=== PATIENT | female | born 1975 | race Caucasian/White ===

== ENCOUNTER 2016-07-14 08:40 | Day surgery (SDC) | payer BC, MEDICAID ==
[~2016-07-14 08:40] MED LIST: Clindamycin Phosphate in D5W 600 MG in Premix Bag 50 BAG IV SCH; Lactated Ringers 1,000 ML IV SCH; Lidocaine 1% 50 ML MDV ONE
[2016-07-14] MEDS ORDERED: Acetaminophen/HYDROcodone 325-5 MG Tab PO PRN (09:00)
[2016-07-14] MEDS ORDERED: Lidocaine 2% 5 ML SDV ONE (09:45)
[2016-07-14] MEDS ORDERED: Propofol 200 MG/20 ML SDV ONE (09:45)
[2016-07-14] MEDS ORDERED: fentaNYL 250 MCG/5 ML SDV ONE (09:45)
[2016-07-14] MEDS ORDERED: Midazolam 1 MG/ML 2 ML SDV ONE (09:45)
--- NOTE | 2016-07-14 10:11 | PCM.PREANE ---
Preanesthetic Assessment - Anesthesia/Transfusion/Family Hx Anesthesia History: Prior Anesthesia Without Reaction Family History of Anesthesia Reaction: No Transfusion History: Prior Transfusion Without Reaction Intubation History: Unknown - Review of Systems General: No Symptoms Pulmonary: No Symptoms Cardiovascular: No Symptoms Gastrointestinal: No symptoms Neurological: No Symptoms Other: Reports: None - Physical Assessment NPO Status Date: 07/13/16 NPO Status Time: 22:00 O2 Sat by Pulse Oximetry: 99 Respiratory Rate: 16 Vital Signs: Last Vital Signs Temp 36.7 C 07/14/16 09:41 Pulse 88 07/14/16 09:41 Resp 16 07/14/16 09:41 BP 116/63 07/14/16 09:41 Pulse Ox 99 07/14/16 09:41 Height: 1.74 m Weight: 70.76 kg ASA Class: 2 Mental Status: Alert & Oriented x3 Airway Class: Mallampati = 2 Dentition: Reports: Normal Dentition Thyro-Mental Finger Breadths: 3 Mouth Opening Finger Breadths: 3 ROM/Head Extension: Full Lungs: Clear to auscultation, Normal respiratory effort Cardiovascular: Regular Rate, Regular Rhythm - Allergies Allergies/Adverse Reactions: Allergies Allergy/AdvReac Type Severity Reaction Status Date / Time amoxicillin Allergy Anaphylactic Verified 09/28/15 10:37 Shock cephalexin Allergy Rash Verified 09/28/15 10:37 codeine Allergy Tachycardia Verified 01/24/16 09:39 erythromycin base Allergy Anaphylactic Verified 06/30/16 13:38 Shock levofloxacin [From Levaquin] Allergy Anaphylactic Verified 06/30/16 13:38 Shock Penicillins Allergy Anaphylactic Verified 09/28/15 10:37 Shock - Blood Blood Available: No - Anesthesia Plan Pre-Op Medication Ordered: None - Acknowledgements Anesthesia Type Planned: General Anesthesia Pt an Appropriate Candidate for the Planned Anesthesia: Yes Alternatives and Risks of Anesthesia Discussed w Pt/Guardian: Yes Pt/Guardian Understands and Agrees with Anesthesia Plan: Yes PreAnesthesia Questionnaire HEENT History: Reports: Other (see below) Other HEENT History: wears contacts Cardiovascular History: Reports: None Respiratory History: Reports: None Gastrointestinal History: Reports: None Genitourinary History: Reports: None 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: Musculoskeletal History: Reports: Fracture, Other (see below) (chondromalacia) Other Musculoskeletal History: open tx for fx of metatarsal bone and metacarpal bone Neurological History: Reports: Concussion Psychiatric History: Reports: None Endocrine/Metabolic History: Reports: None Hematologic History: Reports: Blood transfusion(s) Other Hematologic History: hx following vaginal delivery for post bleed Immunologic History: Reports: None Oncologic (Cancer) History: Reports: None Dermatologic History: Reports: None - Past Surgical History Head Surgeries/Procedures: Reports: None HEENT Surgical History: Reports: Tonsillectomy Female Surgical History: Reports: Hysterectomy, Tubal ligation Other Female Surgeries/Procedures: breast augmenta, hysterectomy, tubal ligation Musculoskeletal Surgical History: Reports: Arthroscopic knee (rt. x3, lt. x4), Shoulder surgery Other Musculoskeletal Surgeries/Procedures:: hx shoulder surgery and knee arthroscopy - SUBSTANCE USE Smoking Status *Q: Current Every Day Smoker (down to 5-6 cigarettes per day) Tobacco Use Within Last Twelve Months: Cigarettes Recreational Drug Use History: No - HOME MEDS Home Medications: Home Meds Phentermine HCl 1 tab PO ASDIRECTED 01/24/16 [History] - CURRENT (IN HOUSE) MEDS Current Meds: Current Medications Hydrocodone Bitart/Acetaminophen ([place] 325-5 Mg) 1 - 2 tab PO Q4H PRN PRN Reason: Pain Clindamycin Phosphate 600 mg/ (Premix) 50 mls @ 100 mls/hr IV [facility] Last Admin: 07/14/16 09:16 Dose: 100 mls/hr Lactated Ringer's (Ringers, Lactated) 1,000 mls @ 100 mls/hr IV ASDIRECTED [facility] Last Admin: 07/14/16 09:10 Dose: 100 mls/hr Discontinued Medications Fentanyl (Sublimaze) Confirm Administered Dose 250 mcg .ROUTE .STK-MED ONE Stop: 07/14/16 09:46 Lidocaine (Xylocaine-Mpf 2%) Confirm Administered Dose 10 ml .ROUTE .STK-MED ONE Stop: 07/14/16 09:46 Lidocaine HCl (Xylocaine 1%) Confirm Administered Dose 50 ml .ROUTE .STK-MED ONE Stop: 07/14/16 07:13 Midazolam HCl (Versed 1 Mg/Ml) Confirm Administered Dose 2 mg .ROUTE .STK-MED ONE Stop: 07/14/16 09:46 Propofol (Diprivan 20 Ml) Confirm Administered Dose 400 mg .ROUTE .STK-MED ONE Stop: 07/14/16 09:46
--- NOTE | 2016-07-14 11:42 | PCM.OPNOTE ---
- General Post-Op/Procedure Note Date of Surgery/Procedure: 07/14/16 Operative Procedure(s): R knee scope with PLM/PMM Post-Op Diagnosis: R knee DJD, med/lat meniscus tear Anesthesia Technique: General LMA Primary Surgeon: Siomara Roblero Armhole Baster Jumpbasting: Sherie Perez in mLs: 5 Condition: Good Free Text/Narrative:: tt=17 min #[id number]
[2016-07-14] MEDS: fentaNYL 100 MCG/2 ML SDV IVPUSH PRN ×5 (11:55→12:59)
--- NOTE | 2016-07-14 12:39 | PCM.POSTAN ---
POST ANESTHESIA ASSESSMENT - MENTAL STATUS Mental Status: alert, oriented - RESPIRATORY Respiratory Status: respiratory rate WNL, airway patent, O2 saturation stable - CARDIOVASCULAR CV Status: pulse rate WNL, blood pressure stable - GASTROINTESTINAL GI Status: no symptoms - POST OP HYDRATION Hydration Status: adequate & stable - OBSERVATIONS Free Text/Narrative:: no anesthesia problems
[2016-07-14 14:04] VITALS: BP 105/53
--- NOTE | 2016-07-15 03:11 | OR ---
SURGEON: Siomara Roblero MD DATE OF PROCEDURE: 07/14/2016 PREOPERATIVE DIAGNOSIS: Degenerative joint disease,right knee. POSTOPERATIVE DIAGNOSES: 1. Degenerative joint disease, right knee. 2. Right knee medial meniscus tear. 3. Right knee lateral meniscus tear. PROCEDURE: Right knee arthroscopy with partial medial and lateral meniscectomy. MEAT PACKER: Sari Perez PA-C. ANESTHESIA: General. ESTIMATED BLOOD LOSS: 5 mL. TOURNIQUET TIME: 17 minutes. COMPLICATIONS: None. DVT PROPHYLAXIS: Not indicated. IMPLANTS USED: None. BRIEF HISTORY: Che is a 41-year-old female, who has had complaint of progressive right knee pain. She has undergone right knee arthroscopy in the past and has known degenerative changes. She has had an increase in her pain recently. At that time, I recommended surgical debridement. The risks and goals of procedure were discussed with the patient and documented preoperatively. She agreed to proceed. DESCRIPTION OF PROCEDURE: The patient was properly identified and brought to the operating room. She was transferred from the OR cart and placed on the operating table in supine position. General anesthesia was administered. After adequate anesthesia was obtained, a well-padded tourniquet was applied to the right lower extremity. The right lower extremity was then prepped in standard fashion using ChloraPrep solution. It was then sterilely draped. A time-out was performed to ensure correct site and procedure. Preoperative antibiotics were given. The surgical site had been marked preoperatively. An Esmarch was used to exsanguinate the right lower extremity and the tourniquet was inflated to 250 mmHg. A lateral portal arthrotomy was established. Blunt trocar and cannula were introduced into the suprapatellar pouch. Camera, inflow, and outflow were assembled. No significant synovitis was noted. The patellofemoral joint was visualized. There was an area of grade 4 chondromalacia centrally along the trochlear groove. The patella also showed diffuse grade 3 chondromalacia. The patella appeared to track centrally. I then extended down the lateral and medial gutter. No loose bodies were identified. I then entered the medial compartment. A medial portal arthrotomy was established. A blunt probe was inserted. The meniscus was probed. It was found to be stable. Degenerative changes were noted along the posterior horn. Using a combination of biters and shaver, this was resected back to a stable remnant. There was a large area of grade 4 chondromalacia along the posterior aspect of the medial femoral condyle. This measured approximately 15 mm x 20 mm and appeared to be nearly full thickness. A shaver was used to trim the loose edges. The medial tibial plateau showed evidence of diffuse grade 2 to grade 3 chondromalacia. I then entered the notch. Both the ACL and PCL were visualized and probed and found to be intact. I finally entered the lateral compartment. There appeared to be diffuse grade 2 to grade 3 chondromalacia along the lateral tibial plateau. There were some loose fragments, which were resected with a shaver. There was a small area measuring approximately by 5 mm x 5 mm over the lateral aspect of the lateral femoral condyle, which had nearly full thickness cartilage loss. The meniscus was then probed. There was found to be degenerative fraying centrally and this was resected with a combination of biters and shaver. The meniscus was again probed and found to be stable. I then entered the patellofemoral joint. There was a central area of chondromalacia along the trochlear groove, which measured approximately 5 mm x 15 mm. This was nearly full thickness. No significant loose cartilage was noted. Instruments were then removed from the knee. The portal sites were closed with 3-0 nylon. Lidocaine 1% was injected along the portal tracts. Xeroform gauze was placed over the wound and a bulky dressing was applied. The tourniquet was then deflated. She was awakened from her anesthetic and transferred back to the operating room cart. She was brought to recovery room in stable condition. All needle and sponge counts were correct. GABRIELA / KWABENA /[id number]
== END 2016-07-14 13:40 | disposition home or self-care (01) ==
LOC: MW.SDS 08:40
PROVIDERS: ATTEND Orthopaedic Surgery
PROC: 0SBC4ZZ Excision of Right Knee Joint, Percutaneous Endoscopic Approach (ICD-10-PCS; principal; 2016-07-14)
PROC: 0SBC4ZZ Excision of Right Knee Joint, Percutaneous Endoscopic Approach (ICD-10-PCS; 2016-07-14)
DX: M17.11 Unilateral primary osteoarthritis, right knee (principal); M65.861 Other synovitis and tenosynovitis, right lower leg; M23.321 Other meniscus derangements, posterior horn of medial meniscus, right knee; M23.361 Other meniscus derangements, other lateral meniscus, right knee; M94.261 Chondromalacia, right knee; F17.210 Nicotine dependence, cigarettes, uncomplicated; Z88.0 Allergy status to penicillin; Z88.1 Allergy status to other antibiotic agents; Z98.51 Tubal ligation status; Z90.710 Acquired absence of both cervix and uterus; Z90.89 Acquired absence of other organs; Z98.890 Other specified postprocedural states
CPT/HCPCS: 29880; A9270; J2250; J3010; J7120; 01400; 88304; J2704

== ENCOUNTER 2017-03-25 07:15 | Day surgery (SDC) | payer BC ==
[~2017-03-25 07:15] MED LIST changes: -Clindamycin Phosphate in D5W 600 MG in Premix Bag 50 BAG IV SCH; -Lidocaine 1% 50 ML MDV ONE; +Lidocaine 2% 5 ML SDV ONE; +Midazolam 1 MG/ML 2 ML SDV ONE; +Ondansetron 4 MG/2 ML SDV ONE; +Propofol 200 MG/20 ML SDV ONE; +Rocuronium 10 MG/ML 10 ML Syringe ONE; +Scopolamine 1.5 MG Transdermal Patch TRDERM SCH; +fentaNYL 250 MCG/5 ML SDV ONE
[2017-03-25] MEDS ORDERED: Clindamycin Phosphate in D5W 600 MG in Premix Bag 50 BAG IV SCH ×2 (08:00)
[2017-03-25] MEDS ORDERED: Ketorolac 10 MG Tab PO PRN (08:00)
[2017-03-25] MEDS ORDERED: Acetaminophen 1,000 MG in Premix Bag 1 BAG IV SCH (08:00)
[2017-03-25] MEDS ORDERED: Acetaminophen/HYDROcodone 325-10 MG Tab PO PRN (08:00)
--- NOTE | 2017-03-25 08:04 | PCM.PREANE ---
Preanesthetic Assessment - Anesthesia/Transfusion/Family Hx Anesthesia History: Prior Anesthesia Reaction Family History of Anesthesia Reaction: No Transfusion History: Prior Transfusion Without Reaction Intubation History: Unknown - Review of Systems General: No Symptoms Pulmonary: No Symptoms Cardiovascular: No Symptoms Gastrointestinal: No Symptoms Neurological: No Symptoms Other: Reports: None - Physical Assessment NPO Status Date: 03/24/17 Height: 1.74 m Weight: 70.76 kg ASA Class: 2 Mental Status: Alert & Oriented x3 Airway Class: Mallampati = 2 Dentition: Reports: Normal Dentition ROM/Head Extension: Full Lungs: Clear to Auscultation, Normal Respiratory Effort Cardiovascular: Regular Rate, Regular Rhythm - Allergies Allergies/Adverse Reactions: Allergies Allergy/AdvReac Type Severity Reaction Status Date / Time amoxicillin Allergy Anaphylactic Verified 03/20/17 10:52 Shock cephalexin Allergy Rash Verified 03/20/17 10:52 codeine Allergy Tachycardia Verified 03/20/17 10:52 erythromycin base Allergy Anaphylactic Verified 03/20/17 10:52 Shock levofloxacin [From Levaquin] Allergy Anaphylactic Verified 03/20/17 10:52 Shock Penicillins Allergy Anaphylactic Verified 03/20/17 10:52 Shock Sulfa (Sulfonamide Allergy Rash Verified 03/20/17 10:52 Antibiotics) - Acknowledgements Anesthesia Type Planned: General Anesthesia Pt an Appropriate Candidate for the Planned Anesthesia: Yes Alternatives and Risks of Anesthesia Discussed w Pt/Guardian: Yes Pt/Guardian Understands and Agrees with Anesthesia Plan: Yes Additional Comments: ISB placed preoperatively for post op pain management. 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: Musculoskeletal History: Reports: Arthritis, Fracture Other Musculoskeletal History: hx of fx toe, hand, foot, fingers Neurological History: Psychiatric History: Reports: None Endocrine/Metabolic History: Reports: None Hematologic History: Reports: Blood Transfusion(s) Other Hematologic History: hx following vaginal delivery for post bleed Immunologic History: Reports: None Oncologic (Cancer) History: Reports: None Dermatologic History: Reports: None - Past Surgical History Head Surgeries/Procedures: Reports: None HEENT Surgical History: Reports: Tonsillectomy Female Surgical History: Reports: Hysterectomy, Tubal Ligation Other Female Surgeries/Procedures: breast augmenta, hysterectomy, tubal ligation Musculoskeletal Surgical History: Reports: Arthroscopic Knee, ORIF, Shoulder Surgery Other Musculoskeletal Surgeries/Procedures:: hx shoulder surgery (RTCR) and knee arthroscopy x8 ORIF right great toe and right hand (has hardware) - SUBSTANCE USE Smoking Status *Q: Current Every Day Smoker Tobacco Use Within Last Twelve Months: Cigarettes Recreational Drug Use History: No - HOME MEDS Home Medications: Home Meds Phentermine HCl 37.5 mg PO ASDIRECTED 01/24/16 [History] Ibuprofen 800 mg PO TID PRN 03/20/17 [History] - CURRENT (IN HOUSE) MEDS Current Meds: Current Medications Hydrocodone Bitart/Acetaminophen ([place] 325-10 Mg) 1 - 2 tab PO Q4H PRN PRN Reason: Pain Fentanyl (Sublimaze) 50 mcg IVPUSH .Q5MIN PRN PRN Reason: Pain Clindamycin Phosphate 600 mg/ (Premix) 50 mls @ 100 mls/hr IV ONCALL [facility] Last Admin: 03/25/17 07:53 Dose: 100 mls/hr Lactated Ringer's (Ringers, Lactated) 1,000 mls @ 100 mls/hr IV ASDIRECTED [facility] Acetaminophen 1,000 mg/ Premix 100 mls @ 400 mls/hr IV .ONETIME [facility] Last Admin: 03/25/17 07:54 Dose: 400 mls/hr Ketorolac Tromethamine (Toradol) 10 mg PO Q6H PRN PRN Reason: Pain Stop: 03/30/17 08:01 Scopolamine (Transderm-Scop) 1.5 mg TRDERM ONARRIVE [facility] Last Admin: 03/25/17 07:54 Dose: 1.5 mg Discontinued Medications Fentanyl (Sublimaze) Confirm Administered Dose 250 mcg .ROUTE .STK-MED ONE Stop: 03/25/17 07:08 Lidocaine (Xylocaine-Mpf 2%) Confirm Administered Dose 5 ml .ROUTE .STK-MED ONE Stop: 03/25/17 07:08 Midazolam HCl (Versed 1 Mg/Ml) Confirm Administered Dose 2 mg .ROUTE .STK-MED ONE Stop: 03/25/17 07:08 Ondansetron HCl (Zofran) Confirm Administered Dose 4 mg .ROUTE .STK-MED ONE Stop: 03/25/17 07:08 Propofol (Diprivan 20 Ml) Confirm Administered Dose 200 mg .ROUTE .STK-MED ONE Stop: 03/25/17 07:08 Rocuronium [place] (Zemuron) Confirm Administered Dose 100 mg .ROUTE .STK-MED ONE Stop: 03/25/17 07:08
[2017-03-25] MEDS ORDERED: Bupivacaine 0.5% 30 ML SDV ONE (08:10)
[2017-03-25] MEDS ORDERED: Dexamethasone 4 MG/ML 5 ML MDV ONE (08:11)
[2017-03-25] MEDS ORDERED: Midazolam 1 MG/ML 2 ML SDV ONE (08:11)
[2017-03-25] MEDS ORDERED: Lidocaine 2% 5 ML SDV ONE (08:11)
[2017-03-25] MEDS ORDERED: fentaNYL 100 MCG/2 ML SDV ONE (08:11)
--- NOTE | 2017-03-25 08:36 | PCM.SN ---
- Free Text/Narrative Note: isb block note. consent obtained, time out performed. lido in skin. + twitch lost at 0.3, no paresthesia, dosed incrementally with 30 ml of 0.5% bupivicaine and 8 mg dexamethasone. No complications. Prior to procedure was sedated with 2 mg versed iv and 50 mcg fentanyl iv.
[2017-03-25] MEDS ORDERED: Mineral Oil/Petrolatum Ophth Oint 3.5 GM Tube ONE (09:01)
[2017-03-25] MEDS ORDERED: Ketorolac 30 MG/ML SDV ONE (10:03)
--- NOTE | 2017-03-25 10:06 | PCM.OPNOTE ---
- General Post-Op/Procedure Note Date of Surgery/Procedure: 03/25/17 Operative Procedure(s): R shoulder scope with SAD, debridement of anterior labrum, debridement of partial RTC tear Post-Op Diagnosis: R shoulder impingement, R shoulder degenerative anterior labral tear, R shoulder partial RTC tear Anesthesia Technique: General ET Tube, Regional Block Primary Surgeon: Siomara Roblero Industrial Electrical Technician: Shweta Alfonso in mLs: 5 Condition: Good Free Text/Narrative:: #[id number]
[2017-03-25] MEDS: fentaNYL 100 MCG/2 ML SDV IVPUSH PRN ×4 (10:28→11:04)
--- NOTE | 2017-03-25 10:41 | OR ---
SURGEON: Siomara Roblero MD DATE OF PROCEDURE: 03/25/2017 PREOPERATIVE DIAGNOSES: 1. Right shoulder impingement syndrome. 2. Right shoulder partial rotator cuff tear. POSTOPERATIVE DIAGNOSES: 1. Right shoulder impingement syndrome. 2. Right shoulder partial rotator cuff tear. 3. Right shoulder degenerative anterior labral tear. PROCEDURE: Right shoulder arthroscopy with, 1. Subacromial decompression with release of coracoacromial ligament and acromioplasty. 2. Limited debridement of the anterior labrum and extensive bursectomy. 3. Debridement of partial rotator cuff tear. GROUP ART SUPERVISOR: Shweta Alfonso PA-C. ANESTHESIA: General with interscalene block. ESTIMATED BLOOD LOSS: 5 mL. TOURNIQUET TIME: 0 minutes. COMPLICATIONS: None. DVT PROPHYLAXIS: PAS boots to bilateral lower extremities. IMPLANTS USED: None. BRIEF HISTORY: Che is a 42-year-old female who has had complaint of progressive right shoulder pain. She has previously undergone a right shoulder arthroscopy many years ago including an open distal clavicle excision. She had done well until recently. She had tried conservative treatment which had not given her significant relief. An MRI did show a partial tear of the rotator cuff. Due to her lack of response to conservative treatment, I did recommend surgical intervention. The risks and goals of procedure were discussed with the patient and were documented preoperatively. She agreed to proceed. DESCRIPTION OF PROCEDURE: The patient was properly identified and brought to the operating room. She was transferred from the OR cart and placed on the operating table in supine position. General anesthesia was administered. After adequate anesthesia was obtained, the patient was placed in a beach-chair position. Care was taken to pad all bony prominences. Her head was secured. The right upper extremity was then prepped in standard fashion using ChloraPrep solution. It was then sterilely draped. A time-out was performed to ensure correct site and procedure. Preoperative antibiotics were given. The surgical site had been marked preoperatively. Bony landmarks were identified with a marking pen. Approximately 30 mL of normal saline was introduced into the glenohumeral joint. A posterior portal was then established. Blunt trocar and cannula were introduced into the glenohumeral joint. Camera, inflow, and outflow were assembled. No significant synovitis was noted within the rotator interval. Superior fraying of the subscapularis tendon was noted. An anterior portal was then established and this was debrided with the shaver. Subscapular recess showed no loose bodies. The labrum was then inspected. She had minor degenerative fraying of the anterior labrum. This was resected with the shaver. The biceps insertion was then inspected. There did not appear to be any peel back or tearing at the attachment site. The biceps was pulled intra-articularly and did not show any signs of tearing or synovitis. The glenoid and humeral head showed no degenerative findings. Posterior labrum appeared intact. The axillary pouch showed no loose bodies. The arm was then brought into an abducted and externally rotated position. The bare area was noted posteriorly. As I progressed forward, there was some mild fraying of the articular side of the rotator cuff. This was resected with the shaver. 1-2 mm of fraying was all that was noted, and the remainder of the rotator cuff was intact. The arm was then brought back into a neutral position. Instruments were removed from the glenohumeral joint. The blunt trocar and cannula were then introduced into the subacromial space. A lateral portal was established. The shaver was then introduced. She did have a large amount of bursa present. This was resected with the shaver and electrocautery. The undersurface of the acromion was cleared of soft tissue. The coracoacromial ligament was released anteriorly. After adequate removal of the bursectomy was confirmed, I was able to inspect the rotator cuff. This was also probed and there did not appear to be any signs of tearing or softening. A 5.0 mm mayra was then used to perform an acromioplasty. This provided good decompression of the subacromial space. Instruments then removed from the shoulder. The portal sites were closed with 3- 0 nylon. Xeroform gauze was placed over the wound and a bulky dressing was applied. She was placed into a sling. She was awakened from her anesthetic and transferred back to the operating room cart. She was brought to recovery room in stable condition. All needle and sponge counts were correct. GABRIELA / KWABENA /[id number]
[2017-03-25] MEDS ORDERED: HYDROmorphone 2 MG/ML Syringe ONE (10:44)
[2017-03-25] MEDS: HYDROmorphone 2 MG/ML Syringe IVPUSH ONE ×2 (10:46→10:52)
[2017-03-25] MEDS ORDERED: HYDROmorphone 2 MG/ML Syringe IVPUSH ONE (12:55)
[2017-03-25 14:00] VITALS: BP 116/79
== END 2017-03-25 13:50 | disposition home or self-care (01) ==
LOC: MW.SDS 07:15
PROVIDERS: ATTEND Orthopaedic Surgery
DX: M75.111 Incomplete rotator cuff tear or rupture of right shoulder, not specified as traumatic (principal); M75.41 Impingement syndrome of right shoulder; S43.401A Unspecified sprain of right shoulder joint, initial encounter; Z88.0 Allergy status to penicillin; Z88.1 Allergy status to other antibiotic agents; Z88.2 Allergy status to sulfonamides; Z79.899 Other long term (current) drug therapy; F17.200 Nicotine dependence, unspecified, uncomplicated
CPT/HCPCS: 29822; 29826; 88304; A9270; J1100; J1170; J1885; J2250; J2405; J3010; J7120; 01610; J2704